=== PATIENT | female | born 1935 | race Two or more races ===

== ENCOUNTER 2021-06-03 14:45 | Emergency (ER) | payer OTHER ==
[~2021-06-03] VITALS: Ht 157.5 cm; Wt 54.4 kg
[2021-06-03] MEDS ORDERED: INTEGRA PLUS C1 EAC1 PO (15:18)
[2021-06-03] MEDS ORDERED: SYMBICORT 16010.2 GM IH (15:19)
[2021-06-03] MEDS ORDERED: PANTOPRAZOLE SO40 MG PO (15:19)
[2021-06-03] MEDS ORDERED: LOSARTAN-HCTZ1 EAC2 PO (15:19)
[2021-06-03] MEDS ORDERED: ANALPRAM HC 2.530 GM RECTAL (18:11)
== END 2021-06-03 18:19 | disposition home or self-care (01) ==
LOC: ER 14:45
DX: K57.90 Diverticulosis of intestine, part unspecified, without perforation or abscess without bleeding (principal); K64.4 Residual hemorrhoidal skin tags

== ENCOUNTER 2021-06-05 20:17 | Inpatient (IN) | payer OTHER ==
[~2021-06-05] VITALS: Ht 160 cm; Wt 54.4 kg
[~2021-06-05 20:17] MED LIST: ANALPRAM HC 2.530 GM RECTAL; INTEGRA PLUS C1 EAC1 PO; LOSARTAN-HCTZ1 EAC2 PO; PANTOPRAZOLE SO40 MG PO; SYMBICORT 16010.2 GM IH
--- NOTE | 2021-06-05 20:32 | NUR ---
PACIENTE ALERTA Y ORIENTADA POR OPHELIA. REFIERE SANGRADO RECTAL DESDE LAS 4PM
--- NOTE | 2021-06-05 21:04 | NUR ---
PTE EVALUADA POR EL DR CHAUDHRYA QUIEN ORDENA EL [place]. SE ORIENTA SOBRE EL TX ORDENADO, LO CUAL REFIERE ENTENDER Y SE REALIZA LABORATORIO [facility] ORDEN MEDICA Y SIGUIENDO MEDIDAS ASEPTICAS.
--- NOTE | 2021-06-05 22:34 | NUR ---
SE NOTIFICA A MS SONIAO, PERSONAL DE [facility] [place], PARA RECOGER TUBOS PILOTOS PARA 3 U DE PRBC, LA MISMA INDICA ESTARAN ENVIANDO [place] CERTIFICACION PARA CERTIFICAR LA IDENTIFICACION DEL PTE.
--- NOTE | 2021-06-06 00:11 | NUR ---
SE RECIBE FEMINA ALERTA Y ORIENTADA POR OPHELIA ESFERAS, EN KASSIE CON BARANDAS SEGURAS Y ELEVADAS. AREA DE VENOPUNCIONES X2 LIBRES DE EDEMA O ENROJECIMIENTO. RECIBIENDO 0.9% NSS @ 80 ML/HR. SE RECIBE DOCUMENTO DE CERTIFICACION DE IDENTIDAD DE PACIENTE POR FAX DE [place], SE DOCUMENTA Y SE DEVUELVE VIA FAX A [place].
[2021-06-09] MEDS ORDERED: PEPCID AC20 MG PO (09:28)
== END 2021-06-09 10:05 | disposition home or self-care (01) | DRG 394 ==
LOC: ER 20:17 → MEDJ 06-06 01:02
PROVIDERS: ADMIT Internal Medicine; ATTEND Internal Medicine
PROC: 30233N1 Transfusion of Nonautologous Red Blood Cells into Peripheral Vein, Percutaneous Approach (ICD-10-PCS; 2021-06-06)
PROC: 0DJD8ZZ Inspection of Lower Intestinal Tract, Via Natural or Artificial Opening Endoscopic (ICD-10-PCS; principal; 2021-06-08)
DX: K64.1 Second degree hemorrhoids (principal); K62.5 Hemorrhage of anus and rectum; D62 Acute posthemorrhagic anemia; Z20.822 Contact with and (suspected) exposure to COVID-19; K57.30 Diverticulosis of large intestine without perforation or abscess without bleeding

== ENCOUNTER 2023-07-09 17:55 | Inpatient (IN) | payer OTHER ==
[~2023-07-09] VITALS: Ht 160 cm; Wt 52.2 kg
[~2023-07-09 17:55] MED LIST changes: +PEPCID AC20 MG PO
[2023-07-09] MEDS ORDERED: GLUMETZA500 MG PO (18:13)
[2023-07-09 19:10] LABS: MEAN CELL VOLUME 73.3 fL (80.00-100.00); MEAN CORPUSCULAR HGB CONC 32.5 g/dl (32.0-36.0); PLATELET COUNT 588 K/uL (150-450); RED BLOOD COUNT 3.13 M/uL (4.00-6.00)
[2023-07-09 19:14] LABS: MEAN CORPUSCULAR HEMOGLOBIN 23.9 pg (27.00-32.0)
[2023-07-09 19:15] LABS: RED CELL DISTRIBUTION WIDTH 17.2 % (11.5-14.5)
[2023-07-09 19:16] LABS: HEMOGLOBIN 7.5 g/dL (12.0-15.00)
[2023-07-09 19:19] LABS: PH,URINE 7.5 (5.0-8.0); URINE APPEARANCE Clear; URINE BILIRRUBIN Negative (NEGATIVE); URINE BLOOD Negative; URINE COLOR Yellow; URINE GLUCOSE Negative (NEGATIVE); URINE LEUKOCYTE Negative; URINE NITRATE Negative; URINE PROTEIN 30 (NEGATIVE); URINE UROBILINOGEN 0.2 E.U./dl
[2023-07-09 19:20] LABS: URINE BACTERIA 531.5 uL (0.0-1933); URINE EPITHELIAL CELLS 1.5 uL (0.0-38.8); URINE RBC 3.8 uL (0.0-20.8); URINE WBC 2.4 uL (0.0-23.2)
[2023-07-09 19:35] LABS: INR 1.04; PARTIAL THROMBOPLASTIN TIME 26.3 SECONDS (22.0-34.0); PROTHROMBIN TIME 10.9 SECONDS (9.0-11.5)
[2023-07-09 19:45] LABS: ALBUMIN 3.4 gm/dL (3.4-5.0); BILIRUBIN TOTAL 0.21 mg/dL (0.3-1.2); CALCIUM 9.3 mg/dL (8.5-10.1); CREATININE SERUM 0.71 mg/dL (0.55-1.02); GFR 78.05; GLOBULINA 4.3 G/DL (2.4-3.5); POTASSIUM 4.01 mEq/L (3.5-5.1); TOTAL PROTEIN 7.7 gm/dL (6.4-8.2)
[2023-07-10 03:57] LABS: RH POSITIVE
[2023-07-12 06:27] LABS: HEMATOCRIT 31.4 % (36.0-45.00); HEMOGLOBIN 10.3 g/dL (12.0-15.00); MEAN CELL VOLUME 74.2 fL (80.00-100.00); MEAN CORPUSCULAR HEMOGLOBIN 24.4 pg (27.00-32.0); MEAN CORPUSCULAR HGB CONC 32.9 g/dl (32.0-36.0); PLATELET COUNT 531 K/uL (150-450); RED BLOOD COUNT 4.24 M/uL (4.00-6.00); RED CELL DISTRIBUTION WIDTH 18.1 % (11.5-14.5)
[2023-07-12] MEDS ORDERED: NIFEDIPINE ER30 M1 PO (15:21)
== END 2023-07-12 15:30 | disposition home or self-care (01) | DRG 812 ==
LOC: ER 17:55 → MEDJ 22:42
PROVIDERS: General Practice; ADMIT Internal Medicine; ATTEND Internal Medicine
PROC: 30233N1 Transfusion of Nonautologous Red Blood Cells into Peripheral Vein, Percutaneous Approach (ICD-10-PCS; principal; 2023-07-10)
DX: D64.9 Anemia, unspecified (principal); I10 Essential (primary) hypertension; E11.9 Type 2 diabetes mellitus without complications; Z79.4 Long term (current) use of insulin

== ENCOUNTER 2024-12-12 16:23 | Inpatient (IN) | payer OTHER ==
[~2024-12-12] VITALS: Ht 152.4 cm; Wt 56.7 kg
[~2024-12-12 16:23] MED LIST changes: +GLUMETZA500 MG PO; +NIFEDIPINE ER30 M1 PO
--- NOTE | 2024-12-12 18:27 | NUR ---
PTE ALERTA Y ORIENTADA X3 QUIEN REFIERE VENIR POR HGB EN 8.3
[2024-12-12] MEDS ORDERED: MONTELUKAST SOD10 MG PO (18:28)
[2024-12-12] MEDS ORDERED: NIFEDIPINE 30 MG TAB.SA.OSM PO ONE (19:15)
[2024-12-12] MEDS ORDERED: 0.9 % SODIUM CHLORIDE 1,000 ML IV SCH (19:15)
[2024-12-12] MEDS ORDERED: FAMOTIDINE/PF 20 MG in 0.9 % SODIUM CHLORIDE 8 ML IV PUSH ONE (19:15)
[2024-12-12] MEDS ORDERED: FAMOTIDINE/PF 20 MG/2 ML VIAL ONE (19:39)
[2024-12-12 19:47] LABS: HEMATOCRIT 25.2 % (36.0-45.00); HEMOGLOBIN 8.4 g/dL (12.0-15.00); MEAN CELL VOLUME 83.2 fL (80.00-100.00); MEAN CORPUSCULAR HEMOGLOBIN 27.8 pg (27.00-32.0); MEAN CORPUSCULAR HGB CONC 33.4 g/dl (32.0-36.0); PLATELET COUNT 536 K/uL (150-450); RED BLOOD COUNT 3.02 M/uL (4.00-6.00); RED CELL DISTRIBUTION WIDTH 16.5 % (11.5-14.5)
--- NOTE | 2024-12-12 19:52 | NUR ---
SE EDUCA A PTE SOBRE TX MEDICO, SE TRACEY UESTRAS DE LABORATORIO UTILIZANDO MEDIDAS ASEPTICAS. SE COLOCA H/L STEVEN DE EDEMA. SE ADMINISTRNA MEDICAMENTOS [facility]DEN MEDICA. SE MIKE BP MANUAL A PTE Y SE DOCUMENTA.
[2024-12-12 20:04] LABS: INR 1.02; PARTIAL THROMBOPLASTIN TIME 27.3 SECONDS (22.0-34.0); PROTHROMBIN TIME 11.1 SECONDS (9.0-11.5)
[2024-12-12 20:09] LABS: ALBUMIN 3.1 gm/dL (3.4-5.0); BILIRUBIN TOTAL 0.1 mg/dL (0.3-1.2); CALCIUM 8.5 mg/dL (8.5-10.1); CREATININE SERUM 0.84 mg/dL (0.55-1.02); GFR 64.13; GLOBULINA 3.9 G/DL (2.4-3.5); POTASSIUM 4.74 mEq/L (3.5-5.1)
[2024-12-12] MEDS ORDERED: FUROsemide 20 MG/2 ML VIAL IV SCH (20:15)
[2024-12-12] MEDS ORDERED: DEXTROSE 50 % IN WATER 0.5 G/ML DISP.SYRIN IV PRN (20:45)
[2024-12-12] MEDS ORDERED: INSULIN LISPRO 1,000 UNIT/10 ML UNITS SUBCUTANEO PRN (20:45)
[2024-12-12 20:55] LABS: URINE APPEARANCE Clear; URINE BILIRRUBIN Negative (NEGATIVE); URINE BLOOD Negative; URINE COLOR Yellow; URINE GLUCOSE Negative (NEGATIVE); URINE KETONE Negative (NEGATIVE); URINE LEUKOCYTE Negative; URINE NITRATE Negative; URINE PROTEIN Negative (NEGATIVE); URINE UROBILINOGEN 0.2 E.U./dl
[2024-12-12 20:59] LABS: URINE BACTERIA 28.1 uL (0.0-1933); URINE RBC 2.2 uL (0.0-20.8)
[2024-12-12 21:10] LABS: URINE EPITHELIAL CELLS 0.7 uL (0.0-38.8); URINE WBC 0.6 uL (0.0-23.2)
[2024-12-12 22:31] VITALS: BP 181/70
[2024-12-13 01:10] VITALS: BP 180/73; O2SAT 95
[2024-12-13 05:06] VITALS: BP 188/65; O2SAT 96
[2024-12-13 08:27] VITALS: BP 181/73; O2SAT 96
[2024-12-13] MEDS ORDERED: PANTOPRAZOLE SODIUM 40 MG/VIAL VIAL IV SCH (09:00)
[2024-12-13] MEDS ORDERED: LOSARTAN POTASSIUM 100 MG TABLET PO SCH (09:00)
[2024-12-13] MEDS ORDERED: hydrALAZINE HCL 20 MG VIAL IV PRN (15:00)
[2024-12-13] MEDS ORDERED: HYDROCHLOROTHIAZIDE 12.5 MG CAPSULE PO SCH (16:00)
[2024-12-13 16:37] VITALS: BP 162/75
[2024-12-13] MEDS ORDERED: NIFEDIPINE 30 MG TAB.SA.OSM PO SCH (17:00)
[2024-12-13] MEDS ORDERED: MONTELUKAST SODIUM 10 MG TABLET PO SCH (17:00)
[2024-12-13 23:16] LABS: BASO % 0.7 % (0.1-1.2); EOS # 0.04 (0.04-0.54); EOS % 0.6 % (0.7-7.0); HEMATOCRIT 35.3 % (34.1-44.9); HEMOGLOBIN 11.5 g/dL (11.2-15.7); LYMPH # 0.96 (1.18-3.74); LYMPH % 14.2 % (19.3-53.1); MEAN CORPUSCULAR HEMOGLOBIN 26.6 pg (25.6-32.2); MONO # 0.44 (0.24-0.82); MONO % 6.5 % (4.7-12.5); NEUT # 5.23 (1.56-6.13); NEUT % 77.7 % (34.0-71.1); PLATELET COUNT 552 K/uL (163-369); RED BLOOD COUNT 4.32 M/uL (3.93-5.22); RED CELL DISTRIBUTION WIDTH 15.3 % (11.6-14.4)
[2024-12-14 02:56] VITALS: BP 137/59; O2SAT 90
[2024-12-14 08:00] VITALS: BP 154/70; O2SAT 94
[2024-12-14 17:26] VITALS: BP 108/67
[2024-12-14 18:01] VITALS: BP 108/67
== END 2024-12-14 20:12 | disposition home or self-care (01) | DRG 812 ==
LOC: ER 16:23 → MEDI 20:32
PROVIDERS: General Practice; ADMIT Internal Medicine; ATTEND Internal Medicine
PROC: 30233N1 Transfusion of Nonautologous Red Blood Cells into Peripheral Vein, Percutaneous Approach (ICD-10-PCS; principal; 2024-12-13)
DX: D64.9 Anemia, unspecified (principal); I10 Essential (primary) hypertension; E11.9 Type 2 diabetes mellitus without complications; Z79.4 Long term (current) use of insulin

== ENCOUNTER 2025-06-30 15:33 | Inpatient (IN) | payer OTHER ==
[~2025-06-30] VITALS: Ht 160 cm; Wt 50.3 kg
[~2025-06-30 15:33] MED LIST changes: +MONTELUKAST SOD10 MG PO
[2025-06-30] MEDS ORDERED: 0.9 % SODIUM CHLORIDE 1,000 ML IV ONE (17:15)
[2025-06-30 19:06] LABS: BASO % 0.6 % (0.1-1.2); EOS # 0.05 (0.04-0.54); EOS % 0.8 % (0.7-7.0); LYMPH # 1.63 (1.18-3.74); LYMPH % 25.0 % (19.3-53.1); MEAN PLATELET VOLUME 8.60 fl (9.4-12.4); MONO # 0.47 (0.24-0.82); MONO % 7.2 % (4.7-12.5); NEUT # 4.32 (1.56-6.13); NEUT % 66.1 % (34.0-71.1); RED CELL DISTRIBUTION WIDTH 17.2 % (11.6-14.4)
[2025-06-30 19:18] LABS: COVID-19 AG NEGATIVE (NEGATIVE)
[2025-06-30 20:31] LABS: INR 1.04
[2025-06-30 20:36] LABS: ALT/SGPT 18.0 U/L (12-78); AST/SGOT 16.0 U/L (15-37); BILIRUBIN TOTAL 0.16 mg/dL (0.3-1.2); BUN CREA RATIO 26.0 (7.0-25.0); CREATININE SERUM 0.7 mg/dL (0.55-1.02); GFR 78.97; GLOBULINA 4.1 G/DL (2.4-3.5); GLUCOSE FASTING 104.0 mg/dL (65-100); OSMOLALITY SERUM 285.0 MOSM/KG (275-295)
[2025-06-30] MEDS ORDERED: DEXTROSE 50 % IN WATER 0.5 G/ML DISP.SYRIN IV PRN (21:00)
[2025-06-30] MEDS ORDERED: 0.9 % SODIUM CHLORIDE 1,000 ML IV SCH (21:00)
[2025-06-30] MEDS ORDERED: ACETAMINOPHEN 500 MG GEL..CAP PO PRN ×2 (21:00→21:15)
[2025-06-30] MEDS ORDERED: INSULIN LISPRO 1,000 UNIT/10 ML UNITS SUBCUTANEO PRN (21:00)
[2025-06-30] MEDS ORDERED: FAMOTIDINE/PF 20 MG in 0.9 % SODIUM CHLORIDE 8 ML IV PUSH SCH (21:02)
[2025-06-30] MEDS ORDERED: ONDANSETRON HCL 4 MG in 0.9 % SODIUM CHLORIDE 50 ML IV PRN (21:15)
[2025-06-30] MEDS ORDERED: LOSARTAN POTASSIUM 100 MG TABLET PO STA (22:15)
[2025-06-30 22:37] VITALS: BP 165/71; O2SAT 100
[2025-07-01] MEDS ORDERED: NIFEDIPINE 30 MG TAB.SA.OSM PO SCH (09:00)
[2025-07-01] MEDS ORDERED: LOSARTAN/HYDROCHLOROTHIAZIDE 1 TAB TABLET PO SCH (09:00)
[2025-07-01 09:48] VITALS: BP 162/72; O2SAT 97
[2025-07-01 17:41] VITALS: BP 124/75
[2025-07-01] MEDS ORDERED: LOSARTAN POTASSIUM 100 MG TABLET PO SCH (21:00)
[2025-07-02 01:20] VITALS: BP 186/73; O2SAT 99
[2025-07-02 06:13] LABS: BASO % 0.6 % (0.1-1.2); EOS # 0.15 (0.04-0.54); EOS % 2.3 % (0.7-7.0); LYMPH # 1.15 (1.18-3.74); LYMPH % 17.6 % (19.3-53.1); MEAN PLATELET VOLUME 8.60 fl (9.4-12.4); MONO # 0.72 (0.24-0.82); MONO % 11.0 % (4.7-12.5); NEUT # 4.45 (1.56-6.13); NEUT % 68.3 % (34.0-71.1); RED CELL DISTRIBUTION WIDTH 16.5 % (11.6-14.4)
[2025-07-02 08:37] VITALS: BP 160/80; O2SAT 96
== END 2025-07-02 10:46 | disposition home or self-care (01) | DRG 812 ==
LOC: ER 15:34 → MEDJ 21:21 → SEC-K 21:21 → MEDJ 23:40
PROVIDERS: Emergency Medicine; ADMIT Internal Medicine; ATTEND Internal Medicine
PROC: 30233N1 Transfusion of Nonautologous Red Blood Cells into Peripheral Vein, Percutaneous Approach (ICD-10-PCS; principal; 2025-07-01)
DX: D64.9 Anemia, unspecified (principal); K62.5 Hemorrhage of anus and rectum; K64.9 Unspecified hemorrhoids; R10.9 Unspecified abdominal pain; I10 Essential (primary) hypertension; K57.90 Diverticulosis of intestine, part unspecified, without perforation or abscess without bleeding; R68.89 Other general symptoms and signs; E86.0 Dehydration